=== PATIENT | male | born 2000 | race Asian ===

== ENCOUNTER 2021-05-24 08:49 | Emergency (ER) | payer SELFPAY ==
--- NOTE | 2021-05-24 09:06 | NUR ---
PT CALLED TO ER - NO RESPONSE. PT IS NOT IN WAITING ROOM.
--- NOTE | 2021-05-24 09:23 | NUR ---
PT WAS CALLED TO ER - NO RESPONSE. PT IS NOT IN WAITING ROOM.
== END 2021-05-24 09:52 | disposition left against medical advice (07) ==
LOC: ER 09:02
DX: Z53.21 Procedure and treatment not carried out due to patient leaving prior to being seen by health care provider (principal)